=== PATIENT | female | born 1960 | race African-American/Black ===

== ENCOUNTER 2017-04-03 11:49 | Emergency (ER) | payer MEDICARE ==
[2017-04-03] MEDS ORDERED: LIDOCAINE 5% (700 MG) TRANSDERMAL ADH..PATCH TP ONE (13:48)
[2017-04-03] MEDS ORDERED: KETOROLAC TROMETHAMINE 60 MG/2 ML SDV IM ONE (13:48)
--- NOTE | 2017-04-03 13:54 | ER Document Report ---
ED Extremity Problem, Lower - General Chief Complaint: Foot Pain Stated Complaint: RIGHT FOOT PAIN Time Seen by Provider: 04/03/17 12:55 Mode of Arrival: Ambulatory Information source: Patient Notes: 56-year-old female presents to ED for complaint of right foot pain 3 days. She denies any injuries or trauma. She states she took her oxycodone with no pain relief. She states she is chronic pain management to [facility] and takes oxycodone. TRAVEL OUTSIDE OF THE [place] IN LAST 30 DAYS: No - HPI Patient complains to provider of: Pain, Swelling Location: Foot - Right Occurred: Other - 3 days Onset/Duration: Gradual Quality of pain: Sharp, Throbbing Severity: Moderate Pain Level: 3 Recent injury: No Associated symptoms: Painful ambulation Exacerbated by: Movement, Walking Relieved by: Nothing - Related Data Allergies/Adverse Reactions: penicillin G [Penicillin G] Allergy (Verified 04/03/17 11:52) Penicillins Allergy (Verified 04/03/17 11:52) Past Medical History - General Information source: Patient - Social History Smoking Status: Never Smoker Cigarette use (# per day): No Chew tobacco use (# tins/day): No Smoking Education Provided: No Frequency of alcohol use: Rare Drug Abuse: None Occupation: Retired Lives with: Alone Family History: Reviewed & Not Pertinent Patient has suicidal ideation: No Patient has homicidal ideation: No - Past Medical History Cardiac Medical History: Reports: Hx Hypertension Pulmonary Medical History: Reports: None EENT Medical History: Reports: None Neurological Medical History: Reports: None Endocrine Medical History: Reports: None Renal/ Medical History: Reports: None Malignancy Medical History: Reports: None GI Medical History: Reports: None Musculoskeltal Medical History: Reports Hx Arthritis, Reports Hx Musculoskeletal Deformity - 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, Reports Hx Musculoskeletal Trauma Skin Medical History: Reports None Psychiatric Medical History: Reports: Hx Anxiety, Hx Depression Infectious Medical History: Reports: None Past Surgical History: Reports: Hx Gastric Bypass Surgery - Gastric sleeve surgery, Hx Orthopedic Surgery - carpel tunnel - Immunizations Immunizations up to date: Yes Hx Diphtheria, Pertussis, Tetanus Vaccination: Yes Review of Systems - Review of Systems Constitutional: No symptoms reported EENT: No symptoms reported Cardiovascular: No symptoms reported Respiratory: No symptoms reported Gastrointestinal: No symptoms reported Genitourinary: No symptoms reported Female Genitourinary: No symptoms reported Musculoskeletal: Other - Pain in the bottom of the right foot goes up the back of the ankle Skin: No symptoms reported Hematologic/Lymphatic: No symptoms reported Neurological/Psychological: No symptoms reported -: Yes All other systems reviewed and negative Physical Exam - Vital signs Vitals: Temp Pulse Resp BP Pulse Ox 97.6 F 97 16 145/87 H 96 04/03/17 11:58 04/03/17 11:58 04/03/17 11:58 04/03/17 11:58 04/03/17 11:58 Interpretation: Normal - General General appearance: Appears well, Alert - HEENT Head: Normocephalic, Atraumatic Eyes: Normal Pupils: PERRL - Respiratory Respiratory status: No respiratory distress Chest status: Nontender Breath sounds: Normal Chest palpation: Normal - Cardiovascular Rhythm: Regular Heart sounds: Normal auscultation Murmur: No - Abdominal Inspection: Normal Distension: No distension Bowel sounds: Normal Tenderness: Nontender Organomegaly: No organomegaly - Back Back: Normal, Nontender - Extremities General upper extremity: Normal inspection, Nontender, Normal color, Normal ROM , Normal temperature General lower extremity: Normal inspection, Normal color, Normal temperature, Normal weight bearing. No: Malinda's sign Ankle: Limited ROM - Due to pain in the bottom of the foot Foot: Tender - Plantar fascia of the foot, No evidence of FB. No: Deformity, Ecchymosis, Instability, Metatarsal compress. pain, Nail injury, Navicular tenderness, Puncture wound, Tender 5th metatarsal, Unable to bear weight - Neurological Neuro grossly intact: Yes Cognition: Normal Orientation: AAOx4 [place] Coma Scale Eye Opening: Spontaneous [place] Coma Scale Verbal: Oriented [place] Coma Scale Motor: Obeys Commands [place] Coma Scale Total: 15 Speech: Normal Motor strength normal: LUE, RUE, LLE, RLE Sensory: Normal - Psychological Associated symptoms: Normal affect, Normal mood - Skin Skin Temperature: Warm Skin Moisture: Dry Skin Color: Normal Course - Re-evaluation Re-evalutation: 04/03/17 21:49 X-ray was discussed with patient. No new injuries or bony abnormalities noted. Patient given instructions on plantar fasciitis and foot exercises. Patient encouraged to use ibuprofen or NSAIDs for her foot pain. Patient also encouraged to use Aspercreme and to follow-up with the mural artist - Vital Signs Vital signs: Temp Pulse Resp BP Pulse Ox 97.6 F 88 16 144/80 H 97 04/03/17 11:58 04/03/17 15:00 04/03/17 15:00 04/03/17 15:00 04/03/17 15:00 - Diagnostic Test Radiology reviewed: Image reviewed, Reports reviewed Discharge - Discharge Clinical Impression: Plantar fasciitis, right Condition: Stable Disposition: HOME, SELF-CARE Instructions: Family Physicians / Practices Additional Instructions: Plantar Fasciitis or Heel Spur Plantar fasciitis is an inflammation of a ligament on the underside of the foot. It can be caused by injury, overuse such as running, or poorly fitting shoes. There may be a bone spur on the heel if inflammation has persisted a long time. Plantar fasciitis is treated with stretching exercises and antiinflammatory medicine. More severe cases may require injection of cortisone. It may take several weeks to get better. If nothing gives relief, an operation to remove the heel spur may help. Call or return if there is redness, increasing pain, swelling, fever, or any other new symptoms. Exercises for the Foot Muscles Stretching and strengthening of the foot muscles is an important part of recovery from injury, as well as in treatment and prevention of overuse syndromes like plantar fasciitis. TOWEL CURLS: Put your foot on a dry towel. Curl your toes to pick it up, then drop it. As it becomes easier, use a heavier towel. Repeat 20 times, twice daily. EVANS CURLS: Lift and turn your knee, so your foot is against the opposite leg about mid-evans. Try to "grab" the entire evans bone with your toes, while moving your foot up and down the leg for one minute. Repeat twice daily. TOE LIFTS: Put your opposite foot over your 2nd to 5th toes. Now lift the toes up, pushing the other foot upward. Repeat 10 times, twice daily. Repeat using the large toe. EVERSIONS: Cross the opposite foot over, placing the heel just behind the 4th and 5th toes. Try to lift up the outside of the bottom foot. Hold 10 seconds. Repeat twice daily. You may use Aspercreme to the bottom of your foot if the Lidoderm patch I gave you helped. FOLLOW-UP CARE: If you have been referred to a physician for follow-up care, call the physician s office for an appointment as you were instructed or within the next two days. If you experience worsening or a significant change in your symptoms, notify the physician immediately or return to the Emergency Department at any time for re-evaluation. Forms: Elevated Blood Pressure Referrals: MONICA KHALIL DPM [ACTIVE STAFF] - Follow up as needed
--- NOTE | 2017-04-03 14:39 | RADIOLOGY REPORT (SQ) ---
EXAM DESCRIPTION: FOOT RIGHT COMPLETE COMPLETED DATE/TIME: 04/03/2017 2:25 pm REASON FOR STUDY: pain bottom of foot COMPARISON: None. NUMBER OF VIEWS: Three views. TECHNIQUE: AP, lateral and oblique without weight bearing radiographic images acquired of the right foot. LIMITATIONS: None. FINDINGS: MINERALIZATION: Normal. BONES: No acute fracture or dislocation. No worrisome bone lesions. No significant osteophytes. JOINTS: No erosions. No susana-articular osteopenia. No chondrocalcinosis. SOFT TISSUES: No swelling. No calcifications. OTHER: No other significant finding. IMPRESSION: NEGATIVE STUDY OF THE RIGHT FOOT. NO EXPLANATION FOR PAIN. TECHNICAL DOCUMENTATION: JOB ID: [id number] [employer]- All Rights Reserved
[2017-04-03 15:57] VITALS: BP 144/80
== END 2017-04-03 15:05 | disposition home or self-care (01) ==
LOC: ER 11:49
DX: M79.671 Pain in right foot (principal); M72.2 Plantar fascial fibromatosis; I10 Essential (primary) hypertension; Z88.0 Allergy status to penicillin; Z98.84 Bariatric surgery status
CPT/HCPCS: 99283; 96372; 73630; J1885

== ENCOUNTER 2018-08-08 09:24 | Emergency (ER) | payer MEDICARE ==
--- NOTE | 2018-08-08 09:50 | ER Document Report ---
ED Medical Screen (RME) - General Chief Complaint: S/S of Possible Stroke Stated Complaint: CHEST PAIN Time Seen by Provider: 08/08/18 09:41 Primary Care Provider: TRACEY PULIDO MD [Primary Care Provider] - Follow up as needed TRAVEL OUTSIDE OF THE [place] IN LAST 30 DAYS: No - HPI Notes: 08/08/18 09:48 Patient is a 57-year-old female with history of chronic bilateral hand pain and hypertension (not currently taking medicines) who presents to the emergency department complaining of right side of body pain for 2 months intermittently. Patient states that she has a sharp pain to her right lower back/buttock, right side of the neck and the right side of the chest. Her pains otherwise do not radiate. Patient states that the pain is worsened when she is moving or pressi ng in the area. No significant cardia pulmonary medical history. Denies any prolonged immobilization, distance travel, recent surgery/trauma, personal cancer history, hormone use, or previous DVT/PE. Denies NAVA, fever, URI, SOB, Abd pain, or rash. I have treated and performed a rapid initial assessment of this patient. A comprehensive ED assessment and evaluation of the patient, analysis of test results and completion of medical decision making process will be conducted by additional ED providers. PHYSICAL EXAMINATION: GENERAL: Well-appearing, well-nourished and in no acute distress. A&Ox4. Answers questions appropriately. Eyes: PERRLA, EOMI, no nystagmus. Chest: + tenderness rt chest wall LUNGS: Breath sounds clear to auscultation bilaterally and equal. No wheezes rales or rhonchi. HEART: Regular rate and rhythm without murmurs, rubs, gallops. ABDOMEN: Soft, nondistended abdomen. No guarding, no rebound. Normal bowel sounds present. No CVA tenderness bilaterally. nontender. Back/neck: + tenderness to palp rt side. Extremities: No cyanosis, clubbing, or edema b/l. Cranial nerves grossly intact. NIH 0. NEUROLOGICAL: Normal speech, normal gait. PSYCH: Normal mood, normal affect. 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
[2018-08-08 10:27] LABS: ABSOLUTE BASOPHILS # (AUTO) 0.1 10^3/uL (0.0-0.2); ABSOLUTE EOSINOPHILS # (AUTO) 0.2 10^3/uL (0.0-0.6); ABSOLUTE LYMPHOCYTES (AUTO) 2.3 10^3/uL (0.5-4.7); ABSOLUTE MONOCYTES (AUTO) 0.5 10^3/uL (0.1-1.4); ABSOLUTE NEUT (AUTO) 2.2 10^3/uL (1.7-8.2); EOSINOPHILS % (AUTO) 4.2 % (0-6); HEMATOCRIT 39.8 % (36.0-47.0); HEMOGLOBIN 13.5 g/dL (12.0-15.5); LYMPHOCYTES % (AUTO) 44.6 % (13-45); MEAN CORPUSCULAR HEMOGLOBIN 31.8 pg (27.0-33.4); MEAN CORPUSCULAR VOLUME 93 fl (80-97); PLATELET COUNT 243 10^3/uL (150-450); RED BLOOD COUNT 4.26 10^6/uL (3.72-5.28); RED CELL DISTRIBUTION WIDTH 14.6 % (11.5-14.0); SEGMENTED NEUTROPHILS % (AUTO) 41.2 % (42-78); TOTAL CELLS COUNTED % (AUTO) 100 %; WHITE BLOOD COUNT 5.2 10^3/uL (4.0-10.5)
--- NOTE | 2018-08-08 10:31 | RADIOLOGY REPORT (SQ) ---
EXAM DESCRIPTION: CHEST SINGLE VIEW COMPLETED DATE/TIME: 08/08/2018 10:14 am REASON FOR STUDY: Rt CP COMPARISON: None. NUMBER OF VIEWS: One view. TECHNIQUE: Single frontal radiographic view of the chest acquired. LIMITATIONS: None. FINDINGS: LUNGS AND PLEURA: No opacities, masses or pneumothorax. No pleural effusion. MEDIASTINUM AND HILAR STRUCTURES: No masses. Contour normal. HEART AND VASCULAR STRUCTURES: Heart normal in size. Normal vasculature. BONES: No acute findings. HARDWARE: None in the chest. OTHER: No other significant finding. IMPRESSION: NO SIGNIFICANT RADIOGRAPHIC FINDING IN THE CHEST. TECHNICAL DOCUMENTATION: JOB ID: [id number] [employer]- All Rights Reserved Reading location - IP/workstation name: [email or web address]
[2018-08-08 10:33] LABS: APPEARANCE,URINE SLIGHTLY-CLOUDY; BILIRUBIN,URINE NEGATIVE (NEGATIVE); COLOR,URINE YELLOW; GLUCOSE, URINE NEGATIVE (NEGATIVE); KETONES,URINE NEGATIVE (NEGATIVE); LEUKOCYTE ESTERASE,URINE NEGATIVE (NEGATIVE); NITRITE,URINE NEGATIVE (NEGATIVE); PROTEIN,URINE NEGATIVE (NEGATIVE)
[2018-08-08] MEDS ORDERED: KETOROLAC TROMETHAMINE 60 MG/2 ML SDV IM ONE (10:41)
[2018-08-08] MEDS ORDERED: DEXAMETHASONE SOD PHOS INJ 10 MG/1 ML VIAL IM ONE (10:41)
--- NOTE | 2018-08-08 10:47 | ER Document Report ---
ED General - General Chief Complaint: S/S of Possible Stroke Stated Complaint: CHEST PAIN Time Seen by Provider: 08/08/18 09:41 Primary Care Provider: TRACEY PULIDO MD [Primary Care Provider] - Follow up as needed Information source: Patient Notes: Patient is a 57-year-old morbidly obese female who comes to the emergency room with a vague complaint of right-sided neck, chest, and arm pain. She also has a complaint of right hip and buttocks pain with radiation down the right leg stopp ing at the knee. All the symptoms been going on over a month. Patient states that the primary complaint is her right lower extremity to include her low back and right buttocks area when she goes to stand up the pain is excruciating and makes her almost fall. Patient is upfront that she takes opiates for chronic pain for her "botched failed carpal tunnel surgery bilaterally. Patient also states that she did not take any of her pain medications at all today because she wanted us to see her exactly how that it is without it being masked. She also states she is not taking any of her blood pressure medications because the one that she was on was reported on the TV to cause some type of cancer and she does not eat that happened to her. She stopped the blood pressure meds approximately 4 months ago. Patient's primary doctor is [facility]. Patient is only history of family history of cardiac as her mother at age 78 of heart disease because she was obese per daughter. Patient denies smoking she has an occasional wine and she is retired. TRAVEL OUTSIDE OF THE [place] IN LAST 30 DAYS: No - HPI Onset: Other - 4 weeks ago Onset/Duration: Gradual, Persistent Quality of pain: Sharp, Stabbing Severity: Severe Pain Level: 4 Associated symptoms: denies: Allergy/hay fever, Chills, Nonproductive cough, Productive cough, Diarrhea, Nausea, Vomiting Exacerbated by: Standing, Movement, Walking Relieved by: Supine, Remaining still Similar symptoms previously: Yes Recently seen / treated by doctor: No - Related Data Allergies/Adverse Reactions: No Known Allergies Allergy (Unverified 08/08/18 09:26) Past Medical History - General Information source: Patient - Social History Smoking Status: Never Smoker Chew tobacco use (# tins/day): No Smoking Education Provided: No Frequency of alcohol use: None Drug Abuse: None Lives with: Family Family History: Reviewed & Not Pertinent Patient has suicidal ideation: No Patient has homicidal ideation: No - Past Medical History Cardiac Medical History: Reports: Hx Hypertension Renal/ Medical History: Denies: Hx Peritoneal Dialysis Musculoskeletal Medical History: Reports Hx Arthritis, Reports Hx Musculoskeletal Deformity - 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, Reports Hx Musculoskeletal Trauma Psychiatric Medical History: Reports: Hx Anxiety, Hx Depression Past Surgical History: Reports: Hx Gastric Bypass Surgery - Gastric sleeve surgery, Hx Orthopedic Surgery - carpel tunnel - Immunizations Immunizations up to date: Yes Hx Diphtheria, Pertussis, Tetanus Vaccination: Yes Review of Systems - Review of Systems Constitutional: No symptoms reported EENT: No symptoms reported Cardiovascular: See HPI, Chest pain Respiratory: No symptoms reported Gastrointestinal: No symptoms reported Genitourinary: No symptoms reported Female Genitourinary: No symptoms reported Musculoskeletal: See HPI, Back pain, Muscle pain Skin: No symptoms reported Hematologic/Lymphatic: No symptoms reported Neurological/Psychological: No symptoms reported -: Yes All other systems reviewed and negative Physical Exam - Vital signs Vitals: Temp Pulse Resp BP Pulse Ox 97.7 F 65 18 158/88 H 99 08/08/18 09:43 08/08/18 09:43 08/08/18 09:43 08/08/18 09:43 08/08/18 09:43 Interpretation: Hypertensive Notes: PHYSICAL EXAMINATION: GENERAL: Patient is a well-nourished well-developed morbidly obese female 57 years of age who is in no apparent distress on physical exam today. Patient denies any shortness of breath or cough. She only complains of "the worst is my right low back buttocks down the leg to my knee. And I also have pain from my neck which is chronic into my right shoulder and my back and under my breast and down my arm. Patient denies any known trauma event. HEAD: Atraumatic, normocephalic. EYES: Pupils equal round and reactive to light, extraocular movements intact, conjunctiva are normal. ENT: Nares patent, oropharynx clear without exudates. Moist mucous membranes. NECK: Normal range of motion, supple without lymphadenopathy LUNGS: Breath sounds clear to auscultation bilaterally and equal. No wheezes rales or rhonchi. HEART: Regular rate and rhythm without murmurs ABDOMEN: Soft, nontender, nondistended abdomen. No guarding, no rebound. No masses appreciated. Female : deferred Musculoskeletal: Normal range of motion, no pitting or edema. No cyanosis. NEUROLOGICAL: Normal speech, normal gait. Normal sensory, motor exams PSYCH: Normal mood, normal affect. SKIN: Warm, Dry, normal turgor, no rashes or lesions noted. - Notes Notes: PHYSICAL EXAMINATION: GENERAL: Patient is a well-nourished well-developed morbidly obese female who is in no apparent distress on physical exam today. HEAD: Atraumatic, normocephalic. EYES: Pupils equal round and reactive to light, extraocular movements intact, conjunctiva are normal. ENT: Nares patent, oropharynx clear without exudates. Moist mucous membranes. NECK: Examination of patient's cervical spine shows that she has reproducible tenderness to palpation around posterior C 67 to palpation with paravertebral spasms felt. Further exploration down the upper right side trapezius also shows spasms. Palpation along the scapular border on the right also has moderate amount of tenderness in small knots that are palpable along the scapular border they are extremely tender. Patient also has increased discomfort down the right arm with raising the arm. As well as against resistance she has some mild weakness. She has good cycle repairer strength in hands that have already been handicapped by surgery. She has good cap refill in the nailbeds of the hands of the right finger. Further examination patient's the lower extremities show she has again tenderness to palpation along the lumbar spine around L5-S1 and reproducible tenderness at the sciatic notch on the right buttocks area. Pa tient displays good DTRs in bilateral lower extremities. She has a positive straight leg raise at about 10-12 degrees on the right side only left side is normal. LUNGS: Breath sounds clear to auscultation bilaterally and equal. No wheezes rales or rhonchi. HEART: Regular rate and rhythm without murmurs ABDOMEN: Soft, nontender, nondistended abdomen. No guarding, no rebound. No masses appreciated. Female : deferred Musculoskeletal: Normal range of motion, no pitting or edema. No cyanosis. NEUROLOGICAL: Cranial nerves grossly intact. Normal speech, normal gait. Normal sensory, motor exams PSYCH: Normal mood, normal affect. SKIN: Warm, Dry, normal turgor, no rashes or lesions noted. Course - Re-evaluation Re-evalutation: 08/08/18 10:51 Physical examination the patient pretty much rules out cardiac involvement. All of her pain and discomfort can be reproduced and/or increased by manipulation or position or resistance moves. The symptoms have been going on for over a month they have been continuous or increasing in intensity are manageable somewhat by her narcotic pain medication but no cardiac involvement. Patient's EKG does not show any signs of ischemic events and her stor going on for over a month does not coincide with a stroke. Patient has no neuro deficits. Her NIH score is 0. Labs all look normal. I do not believe we need to go any further especially since she has no history of shortness of breath no family history except a mother who at 78 but she was even more morbidly obese according to the daughter. She does have a doctor Dr. Pulido she is scheduled office visit with him in the near future. I believe it is quite safe for her to be discharged home and to follow-up with him and if he feels she needs a stress testing during his outpatient. Patient's labs all were normal including her urine. Her cardiac enzyme was negative as well. Her blood pressure has been elevated with a diastolic of 250 patient has not taken her blood pressure medications in over 4 months. She does not have an appointment to see her primary doctor until the of the month so I am going to put her back on amlodipine 5 mg twice daily hydrochlorothiazide 25 mg daily. At least will be taking and helping some of the hypertensive process. Patient is in agreement with this and have asked her to keep a log for her blood pressures taken at least when she wakes up in the morning late morning late afternoon and before bed. She is to keep all these numbers down dates and times and taken to her doctor when she sees him on the . 08/08/18 11:16 - Vital Signs Vital signs: Temp Pulse Resp BP Pulse Ox 97.7 F 65 18 158/88 H 99 08/08/18 09:43 08/08/18 09:43 08/08/18 09:43 08/08/18 09:43 08/08/18 09:43 - Laboratory Result Diagrams: 08/08/18 09:55 08/08/18 09:55 Laboratory results interpreted by me: 08/08/18 08/08/18 08/08/18 09:55 09:55 09:55 RDW 14.6 H Seg Neutrophils % 41.2 L Chloride 108 H BUN 6 L Urine Urobilinogen 2.0 H Discharge - Discharge Clinical Impression: Cervical radiculopathy, Piriformis syndrome of right side Sciatica Qualifiers: Laterality: right Qualified Code(s): M54.31 - Sciatica, right side Hypertension Qualifiers: Hypertension type: unspecified Qualified Code(s): I10 - Essential (primary) hypertension Condition: Good Disposition: HOME, SELF-CARE Instructions: Sciatica ([facility]), Neck Injury (Cervical Strain) ([facility]), Radiculopathy ([facility]), High Blood Pressure ([facility]) Additional Instructions: As we discussed your blood pressure is more concerning than anything else. Just as a reminder the blood pressure is a silent killer. Also to remind you that since her blood pressures have been so high for so long that once we start to reduce them with blood pressure medication you are liable to feel worse than you do when your blood pressure is high this is normal continue your medications for at least 3 weeks this feeling and symptoms will go away and you will feel much better once the pressure remains down. Keep your appointment with your physician it is imperative that you talk to them and keep a log as we have also discussed. Should you have any concerns or problems return to ER for recheck. Prescriptions: Amlodipine Besylate [Norvasc 5 mg Tablet] 5 mg PO Q12 #60 tablet Cyclobenzaprine HCl [Flexeril 10 mg Tablet] 10 mg PO TID #21 tablet Hydrochlorothiazide [Hydrodiuril 25 mg Tablet] 25 mg PO QAM #30 tablet Forms: Elevated Blood Pressure Referrals: TRACEY PULIDO MD [Primary Care Provider] - Follow up as needed
[2018-08-08 10:48] LABS: ALANINE AMINOTRANSFERASE 38 U/L (9-52); ALBUMIN 3.6 g/dL (3.5-5.0); ALKALINE PHOSPHATASE 64 U/L (38-126); ASPARTATE AMINO TRANSFERASE 30 U/L (14-36); BILIRUBIN,DIRECT 0.2 mg/dL (0.0-0.4); BILIRUBIN,TOTAL 0.6 mg/dL (0.2-1.3); BLOOD UREA NITROGEN 6 mg/dL (7-20); CALCIUM 9.3 mg/dL (8.4-10.2); CHLORIDE 108 mmol/L (98-107); GLUCOSE 86 mg/dL (75-110); POTASSIUM 4.2 mmol/L (3.6-5.0)
[2018-08-08 10:56] LABS: ANION GAP 5 (5-19); CARBON DIOXIDE 28 mmol/L (22-30); SODIUM 140.9 mmol/L (137-145)
[2018-08-08 12:09] VITALS: BP 176/77
--- NOTE | 2018-08-08 15:36 | EKG REPORT ---
SEVERITY:- BORDERLINE ECG - SINUS RHYTHM BORDERLINE LEFT AXIS DEVIATION BORDERLINE T ABNORMALITIES, INFERIOR LEADS : Confirmed by: Sunil Baugh MD 08-Aug-2018 15:35:32
== END 2018-08-08 11:55 | disposition home or self-care (01) ==
LOC: ER 09:24
DX: M54.12 Radiculopathy, cervical region (principal); M54.31 Sciatica, right side; I10 Essential (primary) hypertension; R07.9 Chest pain, unspecified; M54.2 Cervicalgia; M79.601 Pain in right arm; M25.551 Pain in right hip; M79.604 Pain in right leg; M25.561 Pain in right knee
CPT/HCPCS: 93005; 99284; 96372; 36415; 85025; 80053; 81001; 84484; 71045; 93010; J1885; J1100

== ENCOUNTER 2019-01-13 11:20 | Emergency (ER) | payer MEDICARE, MEDICAID ==
--- NOTE | 2019-01-13 12:05 | ER Document Report ---
ED Medical Screen (RME) - General Chief Complaint: Arm Pain Stated Complaint: RIGHT ARM PAIN Time Seen by Provider: 01/13/19 12:02 Primary Care Provider: TRACEY PULIDO MD [Primary Care Provider] - Follow up as needed Mode of Arrival: Ambulatory Information source: Patient Notes: 58-year-old female with a ED for complaint of pain going down the right side of her neck down her right arm. She states she does have a bulging disc but she also works out at the gym. She states she does have a slight headache on the right side but no nausea or vomiting but the pain she states she is on oxycodone 10 mg is persisted. And this is not relieved the pain. She states she does not feel the pain when she is exercising. She states the pain is worse when she gets up in the morning. I have greeted and performed a rapid initial assessment of this patient. A comprehensive ED assessment and evaluation of the patient, analysis of test results and completion of medical decision making process will be conducted by an additional ED providers. TRAVEL OUTSIDE OF THE [place] 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, Reports Hx Musculoskeletal Trauma Psychiatric Medical History: Reports: Hx Anxiety, Hx Depression Past Surgical History: Reports: Hx Gastric Bypass Surgery - Gastric sleeve surgery, Hx Orthopedic Surgery - carpel tunnel - Immunizations Immunizations up to date: Yes Hx Diphtheria, Pertussis, Tetanus Vaccination: Yes Physical Exam - Vital signs Vitals: Temp Pulse Resp BP Pulse Ox 97.9 F 56 L 18 163/73 H 96 01/13/19 11:01/13/19 11:01/13/19 11:01/13/19 11:01/13/19 11:26 Course - Vital Signs Vital signs: Temp Pulse Resp BP Pulse Ox 97.9 F 56 L 18 163/73 H 96 01/13/19 11:01/13/19 11:01/13/19 11:01/13/19 11:01/13/19 11:26 Doctor's Discharge - Discharge Referrals: TRACEY PULIDO MD [Primary Care Provider] - Follow up as needed
[2019-01-13] MEDS ORDERED: KETOROLAC TROMETHAMINE 60 MG/2 ML SDV IM ONE (12:07)
[2019-01-13] MEDS ORDERED: LIDOCAINE 5% (700 MG) TRANSDERMAL ADH..PATCH TP ONE (15:32)
[2019-01-13] MEDS ORDERED: METHOCARBAMOL 500 MG TABLET PO ONE (15:32)
[2019-01-13] MEDS ORDERED: METHOCARBAMOL 750 MG TABLET PO ONE (15:33)
--- NOTE | 2019-01-13 15:39 | ER Document Report ---
ED Extremity Problem, Upper - General Chief Complaint: Arm Pain Stated Complaint: RIGHT ARM PAIN Time Seen by Provider: 01/13/19 12:02 Primary Care Provider: TRACEY PULIDO MD [Primary Care Provider] - Follow up as needed Mode of Arrival: Ambulatory Notes: RME NOTE: 58-year-old female with a ED for complaint of pain going down the right side of her neck down her right arm. She states she does have a bulging disc but she also works out at the gym. She states she does have a slight headache on the right side but no nausea or vomiting but the pain she states she is on oxycodone 10 mg is persisted. And this is not relieved the pain. She states she does not feel the pain when she is exercising. She states the pain is worse when she gets up in the morning. MY HPI: Patient is denying numbness or tingling in any extremity, she is denying any urinary retention or loss of bowel or bladder. Patient has been treated with Toradol upon my assessment. States she overall feels a lot better. Patient states it has been "years" since her last cervical spine MRI. Patient has no cervical spine point tenderness, it is all right trapezius muscle and into her right shoulder. Patient states she does take oxycodone for "chronic pain in my wrists." Patient has a history of osteoarthritis and cervical radiculopathy. TRAVEL OUTSIDE OF THE [place] IN LAST 30 DAYS: No - Related Data Allergies/Adverse Reactions: No Known Allergies Allergy (Verified 01/13/19 11:22) Past Medical History - General Information source: Patient - Social History Smoking Status: Never Smoker Chew tobacco use (# tins/day): No Frequency of alcohol use: Rare Drug Abuse: None Family History: Reviewed & Not Pertinent Patient has suicidal ideation: No Patient has homicidal ideation: No - Past Medical History Cardiac Medical History: Reports: Hx Hypertension Renal/ Medical History: Denies: Hx Peritoneal Dialysis Musculoskeletal Medical History: Reports Hx Arthritis, Reports Hx Musculoskeletal Deformity - 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, Reports Hx Musculoskeletal Trauma Psychiatric Medical History: Reports: Hx Anxiety, Hx Depression Past Surgical History: Reports: Hx Gastric Bypass Surgery - Gastric sleeve surgery, Hx Orthopedic Surgery - carpel tunnel - Immunizations Immunizations up to date: Yes Hx Diphtheria, Pertussis, Tetanus Vaccination: Yes Review of Systems - Review of Systems Constitutional: denies: Fever EENT: No symptoms reported Cardiovascular: No symptoms reported Respiratory: No symptoms reported Gastrointestinal: No symptoms reported Genitourinary: No symptoms reported Female Genitourinary: No symptoms reported Musculoskeletal: See HPI Skin: No symptoms reported Hematologic/Lymphatic: No symptoms reported Neurological/Psychological: See HPI Physical Exam - Vital signs Vitals: Temp Pulse Resp BP Pulse Ox 97.9 F 56 L 18 163/73 H 96 01/13/19 11:26 01/13/19 11:26 01/13/19 11:26 01/13/19 11:01/13/19 11:26 - Notes Notes: GENERAL: Alert, interacts well. No acute distress. HEAD: Normocephalic, atraumatic. EYES: Pupils equal, round, and reactive to light. Extraocular movements intact. ENT: Oral mucosa moist, tongue midline. NECK: Full range of motion. Supple. Trachea midline. LUNGS: Clear to auscultation bilaterally, no wheezes, rales, or rhonchi. No respiratory distress. HEART: Regular rate and rhythm. No murmur ABDOMEN: Soft, non-tender. Non-distended. Bowel sounds present in all 4 quadrants. EXTREMITIES: Moves all 4 extremities spontaneously. No edema, normal radial and dorsalis pedis pulses bilaterally. No cyanosis. 5 out of 5 strength noted all 4 extremities. Generalized pain right paracervical into right trapezius muscle and right anterior shoulder. BACK: no cervical, thoracic, lumbar midline tenderness. No saddle anesthesia, normal distal neurovascular exam. NEUROLOGICAL: Alert and oriented x3. Normal speech. cranial nerves II through XII grossly intact. PSYCH: Normal affect, normal mood. SKIN: Warm, dry, normal turgor. No rashes or lesions noted. Course - Re-evaluation Re-evalutation: 01/13/19 15:38 Upon my assessment of the patient she is walking down the hallway. Voices she was going to leave the emergency department because she has "been waiting for so long." Patient does state the initial dose of Toradol has helped her pain. Patient states she does not take Aloxi code own for her wrist pain and does not want any other "controlled substances." Discussed use of Lidoderm patches and Robaxin. Also discussed follow-up with orthopedics for an MRI of her neck. At this time will discharge with return precautions and follow-up recommendations. Verbal discharge instructions given a the bedside and opportunity for questions given. Medication warnings reviewed. Patient is in agreement with this plan and has verbalized understanding of return precautions and the need for primary care follow-up in the next 24-72 hours. This medical record was dictated with voice recognizing software. There may be grammatical, syntax errors that are unintended. - Vital Signs Vital signs: Temp Pulse Resp BP Pulse Ox 97.9 F 56 L 18 163/73 H 96 01/13/19 11:26 01/13/19 11:26 01/13/19 11:26 01/13/19 11:01/13/19 11:26 Discharge - Discharge Clinical Impression: Neck pain on right side Condition: Stable Disposition: HOME, SELF-CARE Instructions: Neck Injury (Cervical Strain) ([facility]) Additional Instructions: as we discussed you have been seen and treated in the emergency department for aggravation of your chronic neck pain. Please make sure you are taking your prescribed pain medications as well as muscle relaxers and pain [id number] Lidoderm patches. You should also purchase a local lidocaine cream such as "aspercreme with lidocaine" and use per bottle instructions to the affected area. Apply heat to the area as often as you are able. Continue to keep active and avoid prolonged periods of bed rest. Please follow up with your doctor as soon as possible regarding today's ED visit and your ne isck pain. Return to the ED for worsening neck pain, fever, weakness or numbness of either leg, or if you develop either (1) an inability to urinate or have bowel movements, or (2) loss of your ability to control your bathroom functions (if you start having "accidents"), or if you develop other new symptoms that concern you.concern you. It is my suggestion that you follow-up with orthopedics, you can follow-up with your primary care provider. Ask for referral for a cervical spine MRI. Prescriptions: Methocarbamol [Robaxin 750 mg Tablet] 1,500 mg PO QID PRN #40 tablet PRN Reason: Forms: Return to Work Referrals: TRACEY PULIDO MD [Primary Care Provider] - Follow up as needed CONNOR HOLT MD [ACTIVE PROVISIONAL STAFF] - Follow up as needed
[2019-01-13 16:14] VITALS: BP 137/84
== END 2019-01-13 16:14 | disposition home or self-care (01) ==
LOC: ER 11:20
DX: M54.2 Cervicalgia (principal); M79.601 Pain in right arm; I10 Essential (primary) hypertension; Z98.84 Bariatric surgery status
CPT/HCPCS: 99283; 96372; J1885; A9270; J3490